=== PATIENT | male | born 1970 | race Caucasian/White ===

== ENCOUNTER 2017-09-02 08:30 | Emergency (ER) | payer BC ==
[2017-09-02] MEDS ORDERED: Sodium Chloride 0.9% 1000 ML 1,000 ML ONE (08:51)
[2017-09-02] MEDS ORDERED: Phenergan 25 MG INJ IV ONE (08:53)
[2017-09-02] MEDS ORDERED: TORAdol 30 mg Injection IV ONE (08:53)
[2017-09-02] MEDS ORDERED: Hydromorphone 1 mg/ml Ampule IV ONE (08:53)
[2017-09-02] MEDS ORDERED: Sodium Chloride 0.9% 1000 ML 1,000 ML IV STA (08:53)
--- NOTE | 2017-09-02 08:53 | ERPHSYRPT ---
- History of Present Illness Time Seen by Provider: 09/02/17 08:46 Historian: patient Exam Limitations: no limitations Physician History: The patient is a 47-year-old male with his complaining of a sudden onset of left sided flank pain radiating to his left abdomen. This pain came on suddenly while he was in the bathroom at work. He had a bowel movement at that time. However, he was not able to urinate. He states he just "dribbles". He denies fever. For the last few days he has been outdoors in the heat. He denies ever having a kidney stone. His past medical history is unremarkable. Allergies/Adverse Reactions: carisoprodol [From [employer]] Allergy (Severe, Verified 05/17/12 16:01) Home Medications: No Home Meds 05/17/12 [History] Hx Tetanus, Diphtheria Vaccination/Date Given: Yes (PT STATES UTD) Hx Influenza Vaccination/Date Given: No Hx Pneumococcal Vaccination/Date Given: No - Past Medical History Pertinent Past Medical History: No - Past Surgical History Past Surgical History: No - Social History Smoking Status: Never smoker Exposure to second hand smoke: No Drug Use: none Patient Lives Alone: No - Nursing Vital Signs Nursing Vital Signs: Initial Vital Signs Temperature 98 F 09/02/17 08:31 Pulse Rate 65 09/02/17 08:31 Respiratory Rate 18 09/02/17 08:31 Blood Pressure 162/95 09/02/17 08:31 O2 Sat by Pulse Oximetry 95 09/02/17 08:31 Pain Scale Pain Intensity [Posterior Back 9 ] Pain Intensity 2 - CT Exams Abdomen/Pelvis CT Interpretation: Tele-radiologist Report, No appendicitis, Other (4 mm stone in distal left ureter with mild hydronephrosis. appendicoliths seen without signs of appendicitis per Dr Rhodes.) Ordered Tests: Active Orders 24 hr Category Date Time Status IV Insertion STAT Care 09/02/17 08:53 Active ABDOMEN AND PELVIS W/0 CONTRAS [CT] Stat Exams 09/02/17 10:13 Completed CBC W DIFF Stat Lab 09/02/17 09:02 Completed CMP Stat Lab 09/02/17 09:02 Completed CULTURE,URINE Stat Lab 09/02/17 09:46 Received LIPASE Stat Lab 09/02/17 09:02 Completed Lactic Acid Stat Lab 09/02/17 09:00 Completed UA W/ MICROSCOPIC Stat Lab 09/02/17 09:46 Completed Medication Summary Discontinued Medications Generic Name Dose Route Start Last Admin Trade Name Genevieve PRN Reason Stop Dose Admin Hydromorphone HCl 1 mg 09/02/17 08:53 09/02/17 09:06 Hydromorphone 1 Mg/Ml Ampule IV 09/02/17 08:54 1 mg STAT ONE Administration Hydromorphone HCl Confirm 09/02/17 09:00 Dilaudid 2 Mg Injection Administered 09/02/17 09:01 Dose 2 mg .ROUTE .STK-MED ONE Sodium Chloride Confirm 09/02/17 08:51 Sodium Chloride 0.9% 1000 Ml Administered 09/02/17 08:52 Dose 1,000 mls @ ud .ROUTE .STK-MED ONE Sodium Chloride 1,000 mls @ 999 mls/hr 09/02/17 08:53 09/02/17 09:07 Sodium Chloride 0.9% 1000 Ml IV 09/02/17 09:53 999 mls/hr .Q1H1M STA Administration Ketorolac Tromethamine 30 mg 09/02/17 08:53 09/02/17 09:07 Toradol 30 Mg Injection IV 09/02/17 08:54 30 mg STAT ONE Administration Ketorolac Tromethamine Confirm 09/02/17 08:59 Toradol 30 Mg Injection Administered 09/02/17 09:00 Dose 30 mg .ROUTE .STK-MED ONE Promethazine HCl 25 mg 09/02/17 08:53 09/02/17 09:06 Phenergan 25 Mg Inj IV 09/02/17 08:54 25 mg STAT ONE Administration Promethazine HCl Confirm 09/02/17 08:59 Phenergan 25 Mg Inj Administered 09/02/17 09:00 Dose 25 mg .ROUTE .STK-MED ONE Tamsulosin HCl 0.4 mg 09/02/17 08:55 09/02/17 09:09 Flomax 0.4 Mg PO 09/02/17 08:56 0.4 mg HS STA Administration Tamsulosin HCl Confirm 09/02/17 08:59 Flomax 0.4 Mg Administered 09/02/17 09:00 Dose 0.4 mg .ROUTE .STK-MED ONE Lab/Rad Data: Laboratory Result Diagrams 09/02/17 09:02 09/02/17 09:02 Laboratory Results 09/02/17 09/02/17 09/02/17 Range/Units 09:46 09:02 09:02 WBC 6.0 (4.0-10.5) K/mm3 RBC 4.51 (4.1-5.6) M/mm3 Hgb 14.6 (12.5-18.0) gm/dl Hct 41.2 L (42-50) % MCV 91.4 (78-100) fl MCH 32.4 H (26-32) pg MCHC 35.4 (32-36) g/dl RDW 12.7 (11.5-14.0) % Plt Count 183 (150-450) K/mm3 MPV 10.8 H (6-9.5) fl Gran % 55.0 (36.0-66.0) % Eos # (Auto) 0.24 (0-0.5) Absolute Lymphs (auto) 2.08 (1.0-4.6) Absolute Monos (auto) 0.35 (0.0-1.3) Lymphocytes % 34.8 (24.0-44.0) % Monocytes % 5.9 (0.0-12.0) % Eosinophils % 4.0 (0.00-5.0) % Basophils % 0.3 (0.0-0.4) % Absolute Granulocytes 3.28 (1.4-6.9) Basophils # 0.02 (0-0.4) Sodium 143 (137-145) mmol/L Potassium 4.3 (3.5-5.1) mmol/L Chloride 109 H (98-107) mmol/L Carbon Dioxide 23 (22-30) mmol/L Anion Gap 14.9 (5-15) MEQ/L BUN 20 (9-20) mg/dL Creatinine 1.03 (0.66-1.25) mg/dL Estimated GFR > 60.0 ML/MIN Glucose 133 H (74-106) mg/dL Lactic Acid (0.4-2.0) Calcium 9.2 (8.4-10.2) mg/dL Total Bilirubin 0.70 (0.2-1.3) mg/dL AST 56 (17-59) U/L ALT 94 H (0-50) U/L Alkaline Phosphatase 76 (38-126) U/L Serum Total Protein 7.9 (6.3-8.2) g/dL Albumin 4.5 (3.5-5.0) g/dL Lipase 93 (23-300) U/L Ur Collection Type VOID Urine Color YELLOW (YELLOW) Urine Appearance HAZY (CLEAR) Urine pH 5.0 (5-6) Ur Specific [place] 1.025 (1.005-1.025) Urine Protein TRACE (Negative) Urine Ketones TRACE (NEGATIVE) Urine Blood 250 (0-5) Romeo/ul Urine Nitrite NEGATIVE (NEGATIVE) Urine Bilirubin NEGATIVE (NEGATIVE) Urine Urobilinogen NORMAL (0-1) mg/dL Ur Leukocyte Esterase NEGATIVE (NEGATIVE) Urine Microscopic RBC 50-100 (0-2) /HPF Urine Microscopic WBC 0-2 (0-5) /HPF Ur Epithelial Cells FEW (FEW) /HPF Urine Bacteria FEW (NEGATIVE) /HPF Urine Mucus MANY (NEGATIVE) /HPF Urine Culture Reflexed YES (NO) Urine Glucose 50 (NEGATIVE) mg/dL Specimen Received 09/02/17 0930 09/02/17 Range/Units 09:00 WBC (4.0-10.5) K/mm3 RBC (4.1-5.6) M/mm3 Hgb (12.5-18.0) gm/dl Hct (42-50) % MCV (78-100) fl MCH (26-32) pg MCHC (32-36) g/dl RDW (11.5-14.0) % Plt Count (150-450) K/mm3 MPV (6-9.5) fl Gran % (36.0-66.0) % Eos # (Auto) (0-0.5) Absolute Lymphs (auto) (1.0-4.6) Absolute Monos (auto) (0.0-1.3) Lymphocytes % (24.0-44.0) % Monocytes % (0.0-12.0) % Eosinophils % (0.00-5.0) % Basophils % (0.0-0.4) % Absolute Granulocytes (1.4-6.9) Basophils # (0-0.4) Sodium (137-145) mmol/L Potassium (3.5-5.1) mmol/L Chloride (98-107) mmol/L Carbon Dioxide (22-30) mmol/L Anion Gap (5-15) MEQ/L BUN (9-20) mg/dL Creatinine (0.66-1.25) mg/dL Estimated GFR ML/MIN Glucose (74-106) mg/dL Lactic Acid 1.4 (0.4-2.0) Calcium (8.4-10.2) mg/dL Total Bilirubin (0.2-1.3) mg/dL AST (17-59) U/L ALT (0-50) U/L Alkaline Phosphatase (38-126) U/L Serum Total Protein (6.3-8.2) g/dL Albumin (3.5-5.0) g/dL Lipase (23-300) U/L Ur Collection Type Urine Color (YELLOW) Urine Appearance (CLEAR) Urine pH (5-6) Ur Specific [place] (1.005-1.025) Urine Protein (Negative) Urine Ketones (NEGATIVE) Urine Blood (0-5) Romeo/ul Urine Nitrite (NEGATIVE) Urine Bilirubin (NEGATIVE) Urine Urobilinogen (0-1) mg/dL Ur Leukocyte Esterase (NEGATIVE) Urine Microscopic RBC (0-2) /HPF Urine Microscopic WBC (0-5) /HPF Ur Epithelial Cells (FEW) /HPF Urine Bacteria (NEGATIVE) /HPF Urine Mucus (NEGATIVE) /HPF Urine Culture Reflexed (NO) Urine Glucose (NEGATIVE) mg/dL Specimen Received - Progress Progress: improved Progress Note: 09/02/17 11:31 Pt feeling better after dilaudid, phenergan, toradol 30 mg, and fluids by IV, and flomax 0.4 mg orally. 09/02/17 11:34 Counseled pt/family regarding: lab results, diagnosis, need for follow-up, rad results - Departure Time of Disposition: 11:32 Departure Disposition: Home Clinical Impression: Kidney stone on left side Condition: Stable Critical Care Time: No Referrals: LULY GROSS [Primary Care Provider] - Additional Instructions: You have a 4 mm stone in your distal left ureter. It is almost into the bladder. At home please strain all urine to catch the stone. Have the stone evaluated for composition by your primary medical doctor. You were given Toradol 30 mg, Dilaudid 1 mg, Phenergan 25 mg, and fluids by IV and you were given Flomax 0.4 mg orally in the ER. Take [place] one tablet every 4-6 hours as needed. Follow-up with your primary medical doctor in one to 2 days. Prescriptions: Hydrocodone/APAP 5/325 [[place] 5/325 mg] 1 each PO Q4-6HPRN PRN #10 tablet MDD 6 PRN Reason: Pain
[2017-09-02] MEDS ORDERED: Flomax 0.4 MG PO STA (08:55)
[2017-09-02] MEDS ORDERED: TORAdol 30 mg Injection ONE (08:59)
[2017-09-02] MEDS ORDERED: Flomax 0.4 MG ONE (08:59)
[2017-09-02] MEDS ORDERED: Phenergan 25 MG INJ ONE (08:59)
[2017-09-02] MEDS ORDERED: DILAUDID 2 MG INJECTION ONE (09:00)
[2017-09-02 09:10] LABS: BASOPHIL % 0.3 % (0.0-0.4); Basophil (Absolute #) 0.02 (0-0.4); Eosinophil (Absolute #) 0.24 (0-0.5); Granulocyte Absolute (ANC) 3.28 (1.4-6.9); Hematocrit 41.2 % (42-50); Hemoglobin 14.6 gm/dl (12.5-18.0); Lymphocyte (Absolute #) 2.08 (1.0-4.6); Lymphocytes % 34.8 % (24.0-44.0); Mean Cell Volume 91.4 fl (78-100); Mean Corpuscular Hemoglobin 32.4 pg (26-32); Mean Corpuscular Hgb Concent. 35.4 g/dl (32-36); Mean Platelet Volume 10.8 fl (6-9.5); Monocyte (Absolute #) 0.35 (0.0-1.3); Monocytes % 5.9 % (0.0-12.0); Platelet Count 183 K/mm3 (150-450); Red Blood Count 4.51 M/mm3 (4.1-5.6); Red Cell Distribution Width 12.7 % (11.5-14.0)
[2017-09-02 09:31] LABS: ALBUMIN 4.5 g/dL (3.5-5.0); ALKALINE PHOSPHATASE 76 U/L (38-126); ANION GAP 14.9 MEQ/L (5-15); BLOOD UREA NITROGEN 20 mg/dL (9-20); CHLORIDE 109 mmol/L (98-107); Calcium 9.2 mg/dL (8.4-10.2); Carbon Dioxide 23 mmol/L (22-30); Creatinine 1 1.03 mg/dL (0.66-1.25); Glucose 133 mg/dL (74-106); LIPASE 93 U/L (23-300); Potassium 4.3 mmol/L (3.5-5.1); SGOT/AST 56 U/L (17-59); SGPT/ALT 94 U/L (0-50); SODIUM 143 mmol/L (137-145); Total Protein 7.9 g/dL (6.3-8.2)
[2017-09-02 10:01] LABS: Appearance HAZY (CLEAR); Bacteria FEW /HPF (NEGATIVE); Bilirubin NEGATIVE (NEGATIVE); Blood 250 Ery/ul (0-5); Epithelial Cells FEW /HPF (FEW); Glucose 50 mg/dL (NEGATIVE); Ketones TRACE (NEGATIVE); Leukocyte Esterase NEGATIVE (NEGATIVE); Mucus MANY /HPF (NEGATIVE); Nitrite NEGATIVE (NEGATIVE); Protein,Urine Dip TRACE (Negative); RBC 50-100 /HPF (0-2); Specific Gravity 1.025 (1.005-1.025); Urobilinogen NORMAL mg/dL (0-1); WBC 0-2 /HPF (0-5)
--- NOTE | 2017-09-02 11:10 | XRAY ---
Indication: Left back pain. Hematuria/dysuria. Multiple contiguous axial images obtained through the abdomen and pelvis without contrast using renal stone protocol. Comparison: None Lung bases demonstrate moderate bibasilar dependent atelectasis and a few tiny bibasilar calcified granulomas. Heart is not enlarged. Tiny distal paraesophageal calcified node. 4 mm distal left ureter calculus just proximal to the UVJ. More proximal left ureter is slightly prominent up to 6 mm long with mild hydronephrosis and mild perinephric stranding consistent with partial obstructive uropathy. No free fluid/air. Noncontrasted stomach and bowel loops appear nonobstructed. Tiny appendicoliths without features for appendicitis. Diffuse fatty liver. Remaining liver, gallbladder, pancreas, spleen, adrenal glands, kidneys, ureters, bladder, and aorta appear unremarkable for noncontrast exam. Osseous structures intact. Small fatty umbilical and fatty right inguinal hernias. Impression: 1. 4 mm distal left ureteral calculus producing partial obstruction as detailed. 2. Fatty liver, appendicoliths, and evidence for old granulomatous disease. 3. Small fatty umbilical and fatty right inguinal hernias. CT DI 23.68
[2017-09-02 11:23] VITALS: O2SAT 96
[2017-09-02 12:15] VITALS: BP 114/65; PULSE 84
== END 2017-09-02 12:15 | disposition home or self-care (01) ==
LOC: ED 08:30
DX: N20.0 Calculus of kidney (principal)
CPT/HCPCS: 36000; 36415; 74176; 80053; 81000; 83605; 83690; 85025; 87086; 96360; 96374; 96375; 99284; J1170; J1885; J2550; A9270-GY

== ENCOUNTER 2024-01-06 19:20 | Observation (INO) | payer BC ==
--- NOTE | 2024-01-06 19:34 | ERPHSYRPT ---
- History of Present Illness Time Seen by Provider: 01/06/24 19:34 Source: patient, family Exam Limitations: no limitations Physician History: This is a 53-year-old white male patient of Dr. Camarillo who was brought into the emergency department secondary to fever and shortness of breath. Symptoms began on 01/05/2024. Patient was in [facility] emergency department where, per patient's significant other, reported to me that he was diagnosed with shingles based on visual inspection and was given valacyclovir. Today, he has had fevers and a significant headache. He does have a history of restless leg syndrome and is on Requip for that condition. He has noticed that he has had bilateral lower extremity intermittent numbness from his lower back to his feet. He denies chest pain. He denies shortness of breath. His main concerns today is low- grade fever, shortness of breath, headache and intermittent numbness and lower back pain and cramping lower legs. Timing/Duration: yesterday Activities at Onset: none Severity of Dyspnea-Max: mild Severity of Dyspnea-Current: mild Possible Cause: no prior episodes Associated Symptoms: intermittent, muscle spasms feet (Spasms of feet and lower extremity.), No chest pain/discomfort, No calf pain, No leg swelling Allergies/Adverse Reactions: carisoprodol [From Soma] Allergy (Severe, Verified 01/06/24 20:04) Home Medications: Ropinirole HCl 0.5 mg [Requip 0.5 MG] 0.5 mg PO HS 01/06/24 [History] Valacyclovir HCl [valACYclovir] 1,000 mg PO TID 01/06/24 [History] Hx Tetanus, Diphtheria Vaccination/Date Given: Yes (PT STATES UTD) Hx Influenza Vaccination/Date Given: No Hx Pneumococcal Vaccination/Date Given: No Travel Risk - International Travel Have you traveled outside of the country in past 3 weeks: No - Emerging Infectious Disease Symptoms: Fever, Headaches/Body Aches/, Shortness of Breath, Other (Please Comment) (Recently diagnosed with shingles and is on valacyclovir) - Review of Systems Constitutional: Fever Eyes: No Symptoms Ears, Nose, & Throat: No Symptoms Respiratory: Dyspnea Cardiac: No Symptoms Abdominal/Gastrointestinal: No Symptoms Genitourinary Symptoms: No Symptoms Musculoskeletal: No Symptoms Skin: Rash (Shingles rash), Other Neurological: No Symptoms Psychological: No Symptoms Endocrine: No Symptoms Hematologic/Lymphatic: No Symptoms Immunological/Allergic: No Symptoms All Other Systems: Reviewed and Negative - Past Medical History Pertinent Past Medical History: No Neurological History: Other (Left leg syndrome) ENT History: No Pertinent History Cardiac History: No Pertinent History Respiratory History: No Pertinent History Endocrine Medical History: No Pertinent History Musculoskeletal History: Osteoarthritis GI Medical History: No Pertinent History History: No Pertinent History Psycho-Social History: No Pertinent History Male Reproductive Disorders: No Pertinent History - Past Surgical History Past Surgical History: No - Social History Smoking Status: Never smoker Exposure to second hand smoke: No Drug Use: none Patient Lives Alone: No - Nursing Vital Signs Nursing Vital Signs: Initial Vital Signs Temperature 100.6 F 01/06/24 19:22 Pulse Rate 88 01/06/24 19:22 Respiratory Rate 24 01/06/24 19:22 Blood Pressure 142/89 01/06/24 19:22 O2 Sat by Pulse Oximetry 96 01/06/24 19:22 Pain Scale Pain Intensity 10 - Physical Exam General Appearance: mild distress, alert, anxiety Eye Exam: PERRL/EOMI, eyes nml inspection Ears, Nose, Throat Exam: hearing grossly normal, normal ENT inspection, normal pharynx Neck Exam: normal inspection, non-tender, supple, full range of motion Respiratory Exam: normal breath sounds, lungs clear, airway intact, diminished breath sounds, No chest tenderness, No respiratory distress, No accessory muscle use, No wheezing, No stridor Cardiovascular/Chest Exam: normal heart sounds, regular rate/rhythm Abdominal/Gastrointestinal Exam: soft, normal bowel sounds, No tenderness, No guarding Rectal Exam: not done Extremity Exam: non-tender, normal range of motion, normal inspection, no calf tenderness, no pedal edema, pelvis stable Neurologic Exam: alert, oriented x 3, cooperative, breast surgeon II-XII nml as tested, sensation nml Skin Exam: warm, rash (Shingles rash right anterior lateral torso) Lymphatic Exam: No adenopathy SpO2 Interpretation: normal O2 Delivery: Room Air - Course Nursing assessment & vital signs reviewed: Yes EKG Interpreted by Me: RATE (83), Sinus Rhythm, NORMAL AXIS, NORMAL INTERVALS, NORMAL QRS, NORMAL ST-T, Other (No acute ischemia) Ordered Tests: Active Orders 24 hr Category Date Time Status Varnish Remover STAT Care 01/06/24 19:56 Active EKG-ER Only STAT Care 01/06/24 19:55 Active IV Insertion STAT Care 01/06/24 19:55 Active Pulse Oximetry (ED) STAT Care 01/06/24 19:55 Active CHEST 1 VIEW (PORTABLE) Stat Exams 01/06/24 21:18 Taken HEAD WITHOUT CONTRAST [CT] Stat Exams 01/06/24 21:20 Taken BLOOD CULTURE Stat Lab 01/06/24 20:10 Received CBC W DIFF Stat Lab 01/06/24 19:40 Completed CMP Stat Lab 01/06/24 19:40 Completed D-DIMER QUANTITATIVE Stat Lab 01/06/24 19:40 Completed Lactic Acid Stat Lab 01/06/24 19:55 Completed MAGNESIUM Stat Lab 01/06/24 19:40 Completed MONO SCREEN Stat Lab 01/06/24 20:10 Completed NT PRO BNPII Stat Lab 01/06/24 19:40 Completed TROPONIN Q4H Lab 01/06/24 19:40 Completed TROPONIN Q4H Lab 01/07/24 00:05 Received TROPONIN Q4H Lab 01/07/24 04:00 Ordered UA W/RFX UR CULTURE Stat Lab 01/06/24 23:33 Completed Medication Summary Generic Name Dose Route Start Last Admin Trade Name Freq PRN Reason Stop Dose Admin Amitriptyline HCl 25 mg 01/07/24 23:45 01/07/24 00:04 Amitriptyline Hcl 25 Mg Tablet PO 01/07/24 23:46 25 mg STAT ONE Administration Sodium Chloride 1,000 mls @ 100 mls/hr 01/06/24 20:00 01/06/24 20:00 Sodium Chloride 0.9% 1000 Ml IV 02/05/24 19:59 100 mls/hr .Q10H DUSTIN Administration Discontinued Medications Generic Name Dose Route Start Last Admin Trade Name Freq PRN Reason Stop Dose Admin Amitriptyline HCl Confirm 01/06/24 23:55 Amitriptyline Hcl 25 Mg Tablet Administered 01/06/24 23:56 Dose 25 mg .ROUTE .STK-MED ONE Morphine Sulfate 4 mg 01/06/24 20:24 01/06/24 20:28 Morphine Sulfate 4 Mg/Ml Injection IV 01/06/24 20:25 4 mg STAT ONE Administration Morphine Sulfate Confirm 01/06/24 20:27 Morphine Sulfate 4 Mg/Ml Injection Administered 01/06/24 20:28 Dose 4 mg .ROUTE .STK-MED ONE Morphine Sulfate 4 mg 01/06/24 22:57 01/06/24 23:21 Morphine Sulfate 4 Mg/Ml Injection IV 01/06/24 22:58 4 mg STAT ONE Administration Morphine Sulfate Confirm 01/06/24 23:20 Morphine Sulfate 4 Mg/Ml Injection Administered 01/06/24 23:21 Dose 4 mg .ROUTE .STK-MED ONE Ondansetron HCl 4 mg 01/06/24 20:24 01/06/24 20:28 Ondansetron Hcl 4 Mg/2 Ml Vial IV 01/06/24 20:25 4 mg STAT ONE Administration Ondansetron HCl Confirm 01/06/24 20:27 Ondansetron Hcl 4 Mg/2 Ml Vial Administered 01/06/24 20:28 Dose 4 mg .ROUTE .STK-MED ONE Lab/Rad Data: Laboratory Result Diagrams 01/06/24 19:40 01/06/24 19:40 Laboratory Results 01/06/24 01/06/24 01/06/24 Range/Units 23:33 20:12 20:10 WBC (4.23-9.07) x10^3/uL RBC (4.63-6.08) x10^6/uL Hgb (13.7-17.5) g/dL Hct (40.1-51.0) % MCV (79.0-92.2) fL MCH (25.7-32.2) pg MCHC (32.3-36.5) g/dL RDW (11.6-14.4) % Plt Count (163-337) x10^3/uL MPV (9.4-12.4) fL Gran % (34.0-67.9) % Immature Gran % (Auto) (0.001-0.429) % Nucleat RBC Rel Count (0.00-0.2) % Eos # (Auto) (0.04-0.54) x10^3/uL Immature Gran # (Auto) (0.001-0.031) x10^3u/L Absolute Lymphs (auto) (1.32-3.57) x10^3/uL Absolute Monos (auto) (0.30-0.82) x10^3/uL Absolute Nucleated RBC (0.00-0.012) x10^3u/L Lymphocytes % (21.8-53.1) % Monocytes % (5.3-12.2) % Eosinophils % (0.8-7.0) % Basophils % (0.2-1.2) % Absolute Granulocytes (1.78-5.38) x10^3/uL Basophils # (0.01-0.08) x10^3/uL D-Dimer (0.0-0.50) mg/L Sodium (135-145) mmol/L Potassium (3.5-5.1) mmol/L Chloride (98-107) mmol/L Carbon Dioxide (22-30) mmol/L Anion Gap (5-15) MEQ/L BUN (9-20) mg/dL Creatinine (0.66-1.25) mg/dL Estimated GFR ML/MIN Glucose (74-106) mg/dL Lactic Acid (0.4-2.0) Calcium (8.4-10.2) mg/dL Magnesium (1.6-2.3) mg/dL Total Bilirubin (0.2-1.3) mg/dL AST (17-59) U/L ALT (0-50) U/L Alkaline Phosphatase (38-126) U/L Troponin I (0.000-0.033) ng/mL NT-Pro-B Natriuret Pep (<300) pg/mL Serum Total Protein (6.3-8.2) g/dL Albumin (3.5-5.0) g/dL Urine Color Yellow (Yellow) Urine Appearance Clear (Clear) Urine pH 6.5 (4.6-8.0) Ur Specific [place] >=1.030 A (1.005-1.030) Urine Protein Negative (Negative) Urine Glucose (UA) Negative (Negative) mg/dL Urine Ketones 15 A (Negative) Urine Blood Negative (Negative) Urine Nitrite Negative (Negative) Urine Bilirubin Negative (Negative) Urine Urobilinogen 0.2 (0.2) mg/dL Ur Leukocyte Esterase Negative (Negative) U Hyaline Cast (Auto) NONE SEEN (0-2) /LPF Urine Microscopic RBC 0-2 (0-5) /HPF Urine Microscopic WBC 0-2 (0-5) /HPF Ur Epithelial Cells None Seen (None Seen) /HPF Urine Bacteria None Seen (None Seen) /HPF Urine Culture Reflexed NO (NO) Monoscreen NEGATIVE (NEGATIVE) Influenza Type A Ag NEGATIVE (NEGATIVE) Influenza Type B Ag NEGATIVE (NEGATIVE) RSV (PCR) NEGATIVE (NEGATIVE) SARS-CoV-2 (PCR) NEGATIVE (NEGATIVE) 01/06/24 01/06/24 01/06/24 Range/Units 19:55 19:40 19:40 WBC (4.23-9.07) x10^3/uL RBC (4.63-6.08) x10^6/uL Hgb (13.7-17.5) g/dL Hct (40.1-51.0) % MCV (79.0-92.2) fL MCH (25.7-32.2) pg MCHC (32.3-36.5) g/dL RDW (11.6-14.4) % Plt Count (163-337) x10^3/uL MPV (9.4-12.4) fL Gran % (34.0-67.9) % Immature Gran % (Auto) (0.001-0.429) % Nucleat RBC Rel Count (0.00-0.2) % Eos # (Auto) (0.04-0.54) x10^3/uL Immature Gran # (Auto) (0.001-0.031) x10^3u/L Absolute Lymphs (auto) (1.32-3.57) x10^3/uL Absolute Monos (auto) (0.30-0.82) x10^3/uL Absolute Nucleated RBC (0.00-0.012) x10^3u/L Lymphocytes % (21.8-53.1) % Monocytes % (5.3-12.2) % Eosinophils % (0.8-7.0) % Basophils % (0.2-1.2) % Absolute Granulocytes (1.78-5.38) x10^3/uL Basophils # (0.01-0.08) x10^3/uL D-Dimer 0.41 (0.0-0.50) mg/L Sodium (135-145) mmol/L Potassium (3.5-5.1) mmol/L Chloride (98-107) mmol/L Carbon Dioxide (22-30) mmol/L Anion Gap (5-15) MEQ/L BUN (9-20) mg/dL Creatinine (0.66-1.25) mg/dL Estimated GFR ML/MIN Glucose (74-106) mg/dL Lactic Acid 1.1 (0.4-2.0) Calcium (8.4-10.2) mg/dL Magnesium (1.6-2.3) mg/dL Total Bilirubin (0.2-1.3) mg/dL AST (17-59) U/L ALT (0-50) U/L Alkaline Phosphatase (38-126) U/L Troponin I (0.000-0.033) ng/mL NT-Pro-B Natriuret Pep 60.5 (<300) pg/mL Serum Total Protein (6.3-8.2) g/dL Albumin (3.5-5.0) g/dL Urine Color (Yellow) Urine Appearance (Clear) Urine pH (4.6-8.0) Ur Specific [place] (1.005-1.030) Urine Protein (Negative) Urine Glucose (UA) (Negative) mg/dL Urine Ketones (Negative) Urine Blood (Negative) Urine Nitrite (Negative) Urine Bilirubin (Negative) Urine Urobilinogen (0.2) mg/dL Ur Leukocyte Esterase (Negative) U Hyaline Cast (Auto) (0-2) /LPF Urine Microscopic RBC (0-5) /HPF Urine Microscopic WBC (0-5) /HPF Ur Epithelial Cells (None Seen) /HPF Urine Bacteria (None Seen) /HPF Urine Culture Reflexed (NO) Monoscreen (NEGATIVE) Influenza Type A Ag (NEGATIVE) Influenza Type B Ag (NEGATIVE) RSV (PCR) (NEGATIVE) SARS-CoV-2 (PCR) (NEGATIVE) 01/06/24 01/06/24 01/06/24 Range/Units 19:40 19:40 19:40 WBC 9.1 H (4.23-9.07) x10^3/uL RBC 4.81 (4.63-6.08) x10^6/uL Hgb 15.8 (13.7-17.5) g/dL Hct 44.1 (40.1-51.0) % MCV 91.7 (79.0-92.2) fL MCH 32.8 H (25.7-32.2) pg MCHC 35.8 (32.3-36.5) g/dL RDW 11.9 (11.6-14.4) % Plt Count 201 (163-337) x10^3/uL MPV 11.0 (9.4-12.4) fL Gran % 74.9 H (34.0-67.9) % Immature Gran % (Auto) 0.4 (0.001-0.429) % Nucleat RBC Rel Count 0.0 (0.00-0.2) % Eos # (Auto) 0.22 (0.04-0.54) x10^3/uL Immature Gran # (Auto) 0.04 H (0.001-0.031) x10^3u/L Absolute Lymphs (auto) 1.28 L (1.32-3.57) x10^3/uL Absolute Monos (auto) 0.69 (0.30-0.82) x10^3/uL Absolute Nucleated RBC 0.00 (0.00-0.012) x10^3u/L Lymphocytes % 14.1 L (21.8-53.1) % Monocytes % 7.6 (5.3-12.2) % Eosinophils % 2.4 (0.8-7.0) % Basophils % 0.6 (0.2-1.2) % Absolute Granulocytes 6.79 H (1.78-5.38) x10^3/uL Basophils # 0.05 (0.01-0.08) x10^3/uL D-Dimer (0.0-0.50) mg/L Sodium 136 (135-145) mmol/L Potassium 3.9 (3.5-5.1) mmol/L Chloride 102 (98-107) mmol/L Carbon Dioxide 21 L (22-30) mmol/L Anion Gap 17.6 H (5-15) MEQ/L BUN 21 H (9-20) mg/dL Creatinine 1.06 (0.66-1.25) mg/dL Estimated GFR 83.4 ML/MIN Glucose 148 H (74-106) mg/dL Lactic Acid (0.4-2.0) Calcium 9.7 (8.4-10.2) mg/dL Magnesium 1.8 (1.6-2.3) mg/dL Total Bilirubin 0.70 (0.2-1.3) mg/dL AST 64 H (17-59) U/L ALT 147 H (0-50) U/L Alkaline Phosphatase 73 (38-126) U/L Troponin I < 0.012 (0.000-0.033) ng/mL NT-Pro-B Natriuret Pep (<300) pg/mL Serum Total Protein 7.4 (6.3-8.2) g/dL Albumin 4.6 (3.5-5.0) g/dL Urine Color (Yellow) Urine Appearance (Clear) Urine pH (4.6-8.0) Ur Specific [place] (1.005-1.030) Urine Protein (Negative) Urine Glucose (UA) (Negative) mg/dL Urine Ketones (Negative) Urine Blood (Negative) Urine Nitrite (Negative) Urine Bilirubin (Negative) Urine Urobilinogen (0.2) mg/dL Ur Leukocyte Esterase (Negative) U Hyaline Cast (Auto) (0-2) /LPF Urine Microscopic RBC (0-5) /HPF Urine Microscopic WBC (0-5) /HPF Ur Epithelial Cells (None Seen) /HPF Urine Bacteria (None Seen) /HPF Urine Culture Reflexed (NO) Monoscreen (NEGATIVE) Influenza Type A Ag (NEGATIVE) Influenza Type B Ag (NEGATIVE) RSV (PCR) (NEGATIVE) SARS-CoV-2 (PCR) (NEGATIVE) - Progress Progress: improved, re-examined Air Movement: good Progress Note: 01/06/24 21:57 My medical decision making the assignment of moderate complexity to this patient's medical issue today is based on review of the patient's past medical history, review of the patient's medication list, review patient drug allergy list, history present illness and physical findings on examination. The workup in this patient includes placement of intravenous line, infusion of normal salin e solution, blood cultures, CBC, CMP, urinalysis, chest x-ray, D-dimer, twelve- lead EKG, troponin level as well as monotest and viral studies. Differential diagnoses include but is not limited to viral illness, urinary tract infection, electrolyte abnormalities, pneumonia, acute intracranial abnorm ality 01/06/24 23:46 I interpreted the patient's laboratory data results. The results that have ret urned thus far show no acute, emergent medical issue. The urinalysis is pending. I interpreted the preliminary chest x-ray report on this patient. I do not see an acute, emergent medical issue. The CT scan of the head without contrast was interpreted by the radiologist and I reviewed the impression. The impression states normal CT scan of the head without contrast. 01/07/24 00:25 The patient's urinalysis showed mild dehydration but no other acute, emergent findings. I did speak with Dr. Curiel, our telehospitalist. I did review the patient history, physical findings, chief complaint and workup results. We will place him in observation and we will provide the patient with intravenous fluids, antiemetics, antipyretics and repeat labs in the morning. The telehospitalist accepts the patient to be placed in observation Blood Culture(s) Obtained: Yes Counseled pt/family regarding: lab results, diagnosis, rad results Medical Desision Making - Independent Historian Additional History obtained from: Spouse - Diagnostic Testing Diagnostic test were ordered, analyzed, and reviewed by me: Yes Radiological Interpretation: Interpreted by me, Reviewed by me, Teleradiologist Report - Risk of complications The pt has a high risk of morbidity or mortality based on: Decision regarding hospitilization or escalation of hosp level of care - Departure Departure Disposition: Observation Clinical Impression: Herpes zoster infection, Fever Condition: Stable Critical Care Time: No Referrals: MAGGIE CAMARILLO MD [Primary Care Provider] - Follow up/PCP as directed
[2024-01-06] MEDS ORDERED: Sodium Chloride 0.9% 1000 ML 1,000 ML ONE (19:59)
[2024-01-06] MEDS: Sodium Chloride 0.9% 1000 ML 1,000 ML IV SCH (20:00)
[2024-01-06 20:20] LABS: Absolute Neutrophil Ct (ANC) 6.79 x10^3/uL (1.78-5.38); BASOPHIL % 0.6 % (0.2-1.2); Basophil (Absolute #) 0.05 x10^3/uL (0.01-0.08); Eosinophil % 2.4 % (0.8-7.0); Eosinophil (Absolute #) 0.22 x10^3/uL (0.04-0.54); Hematocrit 44.1 % (40.1-51.0); Hemoglobin 15.8 g/dL (13.7-17.5); IMMATURE GRAN # 0.04 x10^3u/L (0.001-0.031); IMMATURE GRAN % 0.4 % (0.001-0.429); Lymphocyte (Absolute #) 1.28 x10^3/uL (1.32-3.57); Lymphocytes % 14.1 % (21.8-53.1); Mean Cell Volume 91.7 fL (79.0-92.2); Mean Corpuscular Hemoglobin 32.8 pg (25.7-32.2); Mean Corpuscular Hgb Concent. 35.8 g/dL (32.3-36.5); Monocyte (Absolute #) 0.69 x10^3/uL (0.30-0.82); Monocytes % 7.6 % (5.3-12.2); Neutrophil % 74.9 % (34.0-67.9); Platelet Count 201 x10^3/uL (163-337); Red Blood Count 4.81 x10^6/uL (4.63-6.08); Red Cell Distribution Width 11.9 % (11.6-14.4); White Blood Count 9.1 x10^3/uL (4.23-9.07)
[2024-01-06] MEDS ORDERED: Zofran 4 MG/2 ML VIAL ONE (20:27)
[2024-01-06] MEDS ORDERED: MORPHINE SULFATE 4 MG INJ ONE ×2 (20:27→23:20)
[2024-01-06] MEDS: Zofran 4 MG/2 ML VIAL IV ONE (20:28)
[2024-01-06] MEDS: MORPHINE SULFATE 4 MG INJ IV ONE ×2 (20:28→23:21)
[2024-01-06 20:31] LABS: ALBUMIN 4.6 g/dL (3.5-5.0); ANION GAP 17.6 MEQ/L (5-15); BILIRUBIN,TOTAL 0.7 mg/dL (0.2-1.3); Calcium 9.7 mg/dL (8.4-10.2); Creatinine 1 1.06 mg/dL (0.66-1.25); EST GLOMERULAR FILTRATION RATE 83.4 ML/MIN; MAGNESIUM 1.8 mg/dL (1.6-2.3); Potassium 3.9 mmol/L (3.5-5.1); Total Protein 7.4 g/dL (6.3-8.2)
[2024-01-06 20:53] LABS: INFLUENZA A NEGATIVE (NEGATIVE); INFLUENZA B NEGATIVE (NEGATIVE); RESPIRATORY SYNCTIAL VIRUS NEGATIVE (NEGATIVE); SARS-CoV-2 Xpert Express NEGATIVE (NEGATIVE)
[2024-01-06 23:43] LABS: Appearance Clear (Clear); Bacteria None Seen /HPF (None Seen); Bilirubin Negative (Negative); Blood Negative (Negative); Epithelial Cells None Seen /HPF (None Seen); Glucose, Urine Negative (Negative); Hyaline Casts NONE SEEN /LPF (0-2); Ketones 15 (Negative); Leukocyte Esterase Negative (Negative); Nitrite Negative (Negative); Ph 6.5 (4.6-8.0); Protein,Urine Dip Negative (Negative); RBC 0-2 /HPF (0-5); Specific Gravity >=1.030 (1.005-1.030); Urobilinogen 0.2 mg/dL (0.2); WBC 0-2 /HPF (0-5)
[2024-01-06] MEDS ORDERED: AMITRIPTYLINE 25 MG TABLET ONE (23:55)
[2024-01-07] MEDS: AMITRIPTYLINE 25 MG TABLET PO ONE (00:04)
[2024-01-07] MEDS ORDERED: ROCEPHIN 1 GM / 100 ML NaCl 1 GM/100 ML IVPB IV ONE (00:33)
[2024-01-07] MEDS: ROCEPHIN 1 GM / 100 ML NaCl 1 GM/100 ML IVPB IV ONE (00:37)
[2024-01-07] MEDS ORDERED: Docusate Sodium 100 MG PO PRN (01:19)
[2024-01-07] MEDS ORDERED: Zofran 4 MG/2 ML VIAL IV PRN ×2 (01:19→01:24)
[2024-01-07] MEDS ORDERED: TYLENOL 325 MG PO PRN (01:19)
--- NOTE | 2024-01-07 01:49 | PCM.HP ---
History of Present Illness - Chief Complaint Chief Complaint: Herpes zoster infection Date: 01/07/24 History of Present Illness: is a 53 year old male who was recently diagnosed with chest wall shingles (at outside ED, with initiation of Valtrex, medrol) who now presents with [id number] back pain, bilateral leg numbness, fever, and headache. On the day of presentation, the patient reported headache and mild light sensitivity but denied neck pain, neck stiffness, saddle anesthesia, bowel/bladder incontinence, or urinary retention. He has had mild constipation but is passing flatus. His last BM was 2 days ago and was normal. The patient's chest wall er uption is still painful. He also reported dyspnea but did not report precordial visceral chest pain. He does have a history of restless leg syndrome and is on Requip for that condition. He has noticed that he has had bilateral lower extremity intermittent numbness from his lower back to his feet. He denies chest pain. He denies shortness of breath. He reported cramping in his lower legs. In the ED, the workup was unremarkable but the patient was too uncomfortable for discharge. - Review of Systems Constitutional: Fever Eyes: No Symptoms Ears, Nose, & Throat: No Symptoms Respiratory: Short Of Breath Cardiac: No Symptoms Abdominal/Gastrointestinal: No Symptoms Genitourinary Symptoms: No Symptoms Musculoskeletal: Back Pain Skin: Rash, Skin Lesions Neurological: Headache Medications & Allergies Home Medications: Home Medication List Ropinirole HCl 0.5 mg [Requip 0.5 MG] 0.5 mg PO HS 01/06/24 [History Confirmed 01/06/24] Valacyclovir HCl [valACYclovir] 1,000 mg PO TID 01/06/24 [History Confirmed 01/06/24] Allergies/Adverse Reactions: Allergies Allergy/AdvReac Type Severity Reaction Status Date / Time carisoprodol [From Soma] Allergy Severe Verified 01/06/24 20:04 - Past Medical History Past Medical History: No Neurological History: Other (Left leg syndrome) ENT History: No Pertinent History Cardiac History: No Pertinent History Respiratory History: No Pertinent History Endocrine Medical History: No Pertinent History Musculoskelatal History: Osteoarthritis GI Medical History: No Pertinent History History: No Pertinent History Pyscho-Social History: No Pertinent History Male Reproductive Disorders: No Pertinent History Comment: recent shingles diagnosis. rls. seasonal allergies - Past Surgical History Past Surgical History: No Other Surgical History: umbilical hernia repair,. bilat knee surgery Significant Family History: no pertinent family hx - Social History Smoking Status: Never smoker Exposure to second hand smoke: No Alcohol: Daily Drug Use: none - Social Determinants of Health Will the patient participate in the screening: Declined to provide - Physical Exam Vital Signs: Vital Signs - 24 hr Temp Pulse Resp BP BP Pulse Ox 01/07/24 01:00 70 145/90 95 01/07/24 00:30 70 24 148/77 97 01/07/24 00:00 67 27 H 176/96 99 01/06/24 23:30 67 29 H 152/69 99 01/06/24 23:00 66 17 152/88 92 L 01/06/24 22:30 74 31 H 133/65 96 01/06/24 22:00 69 34 H 147/88 97 01/06/24 21:55 72 29 H 146/87 95 01/06/24 21:00 80 28 H 144/100 94 L 01/06/24 20:30 72 31 H 139/65 94 L 01/06/24 20:02 95 01/06/24 20:00 70 22 150/84 94 L 01/06/24 19:30 77 32 H 148/80 96 01/06/24 19:22 100.6 F 81 34 H 142/89 142/89 95 General Appearance: mild distress, alert Neurologic Exam: alert, oriented x 3, cooperative, peoplesoft hr developer II-XII nml as tested, normal mood/affect, nml cerebellar function Eye Exam: PERRL/EOMI, eyes nml inspection Ears, Nose, Throat Exam: normal ENT inspection Neck Exam: normal inspection, non-tender, supple, full range of motion Respiratory Exam: normal breath sounds, lungs clear Cardiovascular Exam: regular rate/rhythm, normal peripheral pulses Gastrointestinal/Abdomen Exam: soft, normal bowel sounds Back Exam: normal inspection, normal range of motion, point tenderness (mid back (lower thoracic/upper lumbar) without warmth or induration) Extremity Exam: normal inspection, normal range of motion Skin Exam: rash (Chest wall rash noted in dermatomal distribution. Painful/tender to touch.) Results - Labs Lab/Micro Results: Lab Results-Last 24 Hours 01/06/24 01/06/24 01/06/24 Range/Units 19:40 19:40 19:40 WBC 9.1 H (4.23-9.07) x10^3/uL RBC 4.81 (4.63-6.08) x10^6/uL Hgb 15.8 (13.7-17.5) g/dL Hct 44.1 (40.1-51.0) % MCV 91.7 (79.0-92.2) fL MCH 32.8 H (25.7-32.2) pg MCHC 35.8 (32.3-36.5) g/dL RDW 11.9 (11.6-14.4) % Plt Count 201 (163-337) x10^3/uL MPV 11.0 (9.4-12.4) fL Gran % 74.9 H (34.0-67.9) % Immature Gran % (Auto) 0.4 (0.001-0.429) % Nucleat RBC Rel Count 0.0 (0.00-0.2) % Eos # (Auto) 0.22 (0.04-0.54) x10^3/uL Immature Gran # (Auto) 0.04 H (0.001-0.031) x10^3u/L Absolute Lymphs (auto) 1.28 L (1.32-3.57) x10^3/uL Absolute Monos (auto) 0.69 (0.30-0.82) x10^3/uL Absolute Nucleated RBC 0.00 (0.00-0.012) x10^3u/L Lymphocytes % 14.1 L (21.8-53.1) % Monocytes % 7.6 (5.3-12.2) % Eosinophils % 2.4 (0.8-7.0) % Basophils % 0.6 (0.2-1.2) % Absolute Granulocytes 6.79 H (1.78-5.38) x10^3/uL Basophils # 0.05 (0.01-0.08) x10^3/uL D-Dimer (0.0-0.50) mg/L Sodium 136 (135-145) mmol/L Potassium 3.9 (3.5-5.1) mmol/L Chloride 102 (98-107) mmol/L Carbon Dioxide 21 L (22-30) mmol/L Anion Gap 17.6 H (5-15) MEQ/L BUN 21 H (9-20) mg/dL Creatinine 1.06 (0.66-1.25) mg/dL Estimated GFR 83.4 ML/MIN Glucose 148 H (74-106) mg/dL Lactic Acid (0.4-2.0) Calcium 9.7 (8.4-10.2) mg/dL Magnesium 1.8 (1.6-2.3) mg/dL Total Bilirubin 0.70 (0.2-1.3) mg/dL AST 64 H (17-59) U/L ALT 147 H (0-50) U/L Alkaline Phosphatase 73 (38-126) U/L Troponin I < 0.012 (0.000-0.033) ng/mL NT-Pro-B Natriuret Pep (<300) pg/mL Serum Total Protein 7.4 (6.3-8.2) g/dL Albumin 4.6 (3.5-5.0) g/dL Urine Color (Yellow) Urine Appearance (Clear) Urine pH (4.6-8.0) Ur Specific [place] (1.005-1.030) Urine Protein (Negative) Urine Glucose (UA) (Negative) mg/dL Urine Ketones (Negative) Urine Blood (Negative) Urine Nitrite (Negative) Urine Bilirubin (Negative) Urine Urobilinogen (0.2) mg/dL Ur Leukocyte Esterase (Negative) U Hyaline Cast (Auto) (0-2) /LPF Urine Microscopic RBC (0-5) /HPF Urine Microscopic WBC (0-5) /HPF Ur Epithelial Cells (None Seen) /HPF Urine Bacteria (None Seen) /HPF Urine Culture Reflexed (NO) Monoscreen (NEGATIVE) Influenza Type A Ag (NEGATIVE) Influenza Type B Ag (NEGATIVE) RSV (PCR) (NEGATIVE) SARS-CoV-2 (PCR) (NEGATIVE) 01/06/24 01/06/24 01/06/24 Range/Units 19:40 19:40 19:55 WBC (4.23-9.07) x10^3/uL RBC (4.63-6.08) x10^6/uL Hgb (13.7-17.5) g/dL Hct (40.1-51.0) % MCV (79.0-92.2) fL MCH (25.7-32.2) pg MCHC (32.3-36.5) g/dL RDW (11.6-14.4) % Plt Count (163-337) x10^3/uL MPV (9.4-12.4) fL Gran % (34.0-67.9) % Immature Gran % (Auto) (0.001-0.429) % Nucleat RBC Rel Count (0.00-0.2) % Eos # (Auto) (0.04-0.54) x10^3/uL Immature Gran # (Auto) (0.001-0.031) x10^3u/L Absolute Lymphs (auto) (1.32-3.57) x10^3/uL Absolute Monos (auto) (0.30-0.82) x10^3/uL Absolute Nucleated RBC (0.00-0.012) x10^3u/L Lymphocytes % (21.8-53.1) % Monocytes % (5.3-12.2) % Eosinophils % (0.8-7.0) % Basophils % (0.2-1.2) % Absolute Granulocytes (1.78-5.38) x10^3/uL Basophils # (0.01-0.08) x10^3/uL D-Dimer 0.41 (0.0-0.50) mg/L Sodium (135-145) mmol/L Potassium (3.5-5.1) mmol/L Chloride (98-107) mmol/L Carbon Dioxide (22-30) mmol/L Anion Gap (5-15) MEQ/L BUN (9-20) mg/dL Creatinine (0.66-1.25) mg/dL Estimated GFR ML/MIN Glucose (74-106) mg/dL Lactic Acid 1.1 (0.4-2.0) Calcium (8.4-10.2) mg/dL Magnesium (1.6-2.3) mg/dL Total Bilirubin (0.2-1.3) mg/dL AST (17-59) U/L ALT (0-50) U/L Alkaline Phosphatase (38-126) U/L Troponin I (0.000-0.033) ng/mL NT-Pro-B Natriuret Pep 60.5 (<300) pg/mL Serum Total Protein (6.3-8.2) g/dL Albumin (3.5-5.0) g/dL Urine Color (Yellow) Urine Appearance (Clear) Urine pH (4.6-8.0) Ur Specific [place] (1.005-1.030) Urine Protein (Negative) Urine Glucose (UA) (Negative) mg/dL Urine Ketones (Negative) Urine Blood (Negative) Urine Nitrite (Negative) Urine Bilirubin (Negative) Urine Urobilinogen (0.2) mg/dL Ur Leukocyte Esterase (Negative) U Hyaline Cast (Auto) (0-2) /LPF Urine Microscopic RBC (0-5) /HPF Urine Microscopic WBC (0-5) /HPF Ur Epithelial Cells (None Seen) /HPF Urine Bacteria (None Seen) /HPF Urine Culture Reflexed (NO) Monoscreen (NEGATIVE) Influenza Type A Ag (NEGATIVE) Influenza Type B Ag (NEGATIVE) RSV (PCR) (NEGATIVE) SARS-CoV-2 (PCR) (NEGATIVE) 01/06/24 01/06/24 01/06/24 Range/Units 20:10 20:12 23:33 WBC (4.23-9.07) x10^3/uL RBC (4.63-6.08) x10^6/uL Hgb (13.7-17.5) g/dL Hct (40.1-51.0) % MCV (79.0-92.2) fL MCH (25.7-32.2) pg MCHC (32.3-36.5) g/dL RDW (11.6-14.4) % Plt Count (163-337) x10^3/uL MPV (9.4-12.4) fL Gran % (34.0-67.9) % Immature Gran % (Auto) (0.001-0.429) % Nucleat RBC Rel Count (0.00-0.2) % Eos # (Auto) (0.04-0.54) x10^3/uL Immature Gran # (Auto) (0.001-0.031) x10^3u/L Absolute Lymphs (auto) (1.32-3.57) x10^3/uL Absolute Monos (auto) (0.30-0.82) x10^3/uL Absolute Nucleated RBC (0.00-0.012) x10^3u/L Lymphocytes % (21.8-53.1) % Monocytes % (5.3-12.2) % Eosinophils % (0.8-7.0) % Basophils % (0.2-1.2) % Absolute Granulocytes (1.78-5.38) x10^3/uL Basophils # (0.01-0.08) x10^3/uL D-Dimer (0.0-0.50) mg/L Sodium (135-145) mmol/L Potassium (3.5-5.1) mmol/L Chloride (98-107) mmol/L Carbon Dioxide (22-30) mmol/L Anion Gap (5-15) MEQ/L BUN (9-20) mg/dL Creatinine (0.66-1.25) mg/dL Estimated GFR ML/MIN Glucose (74-106) mg/dL Lactic Acid (0.4-2.0) Calcium (8.4-10.2) mg/dL Magnesium (1.6-2.3) mg/dL Total Bilirubin (0.2-1.3) mg/dL AST (17-59) U/L ALT (0-50) U/L Alkaline Phosphatase (38-126) U/L Troponin I (0.000-0.033) ng/mL NT-Pro-B Natriuret Pep (<300) pg/mL Serum Total Protein (6.3-8.2) g/dL Albumin (3.5-5.0) g/dL Urine Color Yellow (Yellow) Urine Appearance Clear (Clear) Urine pH 6.5 (4.6-8.0) Ur Specific [place] >=1.030 A (1.005-1.030) Urine Protein Negative (Negative) Urine Glucose (UA) Negative (Negative) mg/dL Urine Ketones 15 A (Negative) Urine Blood Negative (Negative) Urine Nitrite Negative (Negative) Urine Bilirubin Negative (Negative) Urine Urobilinogen 0.2 (0.2) mg/dL Ur Leukocyte Esterase Negative (Negative) U Hyaline Cast (Auto) NONE SEEN (0-2) /LPF Urine Microscopic RBC 0-2 (0-5) /HPF Urine Microscopic WBC 0-2 (0-5) /HPF Ur Epithelial Cells None Seen (None Seen) /HPF Urine Bacteria None Seen (None Seen) /HPF Urine Culture Reflexed NO (NO) Monoscreen NEGATIVE (NEGATIVE) Influenza Type A Ag NEGATIVE (NEGATIVE) Influenza Type B Ag NEGATIVE (NEGATIVE) RSV (PCR) NEGATIVE (NEGATIVE) SARS-CoV-2 (PCR) NEGATIVE (NEGATIVE) 01/07/24 Range/Units 00:05 WBC (4.23-9.07) x10^3/uL RBC (4.63-6.08) x10^6/uL Hgb (13.7-17.5) g/dL Hct (40.1-51.0) % MCV (79.0-92.2) fL MCH (25.7-32.2) pg MCHC (32.3-36.5) g/dL RDW (11.6-14.4) % Plt Count (163-337) x10^3/uL MPV (9.4-12.4) fL Gran % (34.0-67.9) % Immature Gran % (Auto) (0.001-0.429) % Nucleat RBC Rel Count (0.00-0.2) % Eos # (Auto) (0.04-0.54) x10^3/uL Immature Gran # (Auto) (0.001-0.031) x10^3u/L Absolute Lymphs (auto) (1.32-3.57) x10^3/uL Absolute Monos (auto) (0.30-0.82) x10^3/uL Absolute Nucleated RBC (0.00-0.012) x10^3u/L Lymphocytes % (21.8-53.1) % Monocytes % (5.3-12.2) % Eosinophils % (0.8-7.0) % Basophils % (0.2-1.2) % Absolute Granulocytes (1.78-5.38) x10^3/uL Basophils # (0.01-0.08) x10^3/uL D-Dimer (0.0-0.50) mg/L Sodium (135-145) mmol/L Potassium (3.5-5.1) mmol/L Chloride (98-107) mmol/L Carbon Dioxide (22-30) mmol/L Anion Gap (5-15) MEQ/L BUN (9-20) mg/dL Creatinine (0.66-1.25) mg/dL Estimated GFR ML/MIN Glucose (74-106) mg/dL Lactic Acid (0.4-2.0) Calcium (8.4-10.2) mg/dL Magnesium (1.6-2.3) mg/dL Total Bilirubin (0.2-1.3) mg/dL AST (17-59) U/L ALT (0-50) U/L Alkaline Phosphatase (38-126) U/L Troponin I < 0.012 (0.000-0.033) ng/mL NT-Pro-B Natriuret Pep (<300) pg/mL Serum Total Protein (6.3-8.2) g/dL Albumin (3.5-5.0) g/dL Urine Color (Yellow) Urine Appearance (Clear) Urine pH (4.6-8.0) Ur Specific [place] (1.005-1.030) Urine Protein (Negative) Urine Glucose (UA) (Negative) mg/dL Urine Ketones (Negative) Urine Blood (Negative) Urine Nitrite (Negative) Urine Bilirubin (Negative) Urine Urobilinogen (0.2) mg/dL Ur Leukocyte Esterase (Negative) U Hyaline Cast (Auto) (0-2) /LPF Urine Microscopic RBC (0-5) /HPF Urine Microscopic WBC (0-5) /HPF Ur Epithelial Cells (None Seen) /HPF Urine Bacteria (None Seen) /HPF Urine Culture Reflexed (NO) Monoscreen (NEGATIVE) Influenza Type A Ag (NEGATIVE) Influenza Type B Ag (NEGATIVE) RSV (PCR) (NEGATIVE) SARS-CoV-2 (PCR) (NEGATIVE) - Radiology Impressions Radiology Exams & Impressions: Radiology Procedures Category Date Time Status CHEST 1 VIEW (PORTABLE) Stat Exams 01/06/24 21:18 Taken HEAD WITHOUT CONTRAST [CT] Stat Exams 01/06/24 21:20 Taken MRI L-SPINE W & W/O CONTRAST [MRI] Routine Exams 01/07/24 01:36 Ordered MRI T-SPINE W & W/O CONTRAST [MRI] Routine Exams 01/07/24 01:36 Ordered Assessment/Plan (1) Back pain Current Visit: Yes Status: Acute Assessment & Plan: As below, MRI ordered. [place]. Code(s): M54.9 - DORSALGIA, UNSPECIFIED (2) Herpes zoster infection Current Visit: Yes Status: Acute Assessment & Plan: In the context of the patient's reported bilateral leg numbness, will order MRI of the lumbar and thoracic spine to rule out occult process. No saddle anesthesia noted. Differential diagnosis includes a postherpetic neuralgia, although the constellation of symptoms and distribution of affected areas is not consistent. Initiated amitryptiline and also will offer Dilaudid for breakthrough pain. Muscle relaxants for spasms and will resume the prescribed Medrol dose pack. Continue Valtrex. On isolation. Code(s): B02.9 - ZOSTER WITHOUT COMPLICATIONS (3) Restless leg syndrome Current Visit: Yes Status: Acute Assessment & Plan: Continue Requip (4) Fever Current Visit: Yes Status: Acute Assessment & Plan: Likely related to viral syndrome. Will monitor. Code(s): R50.9 - FEVER, UNSPECIFIED Telemedicine Encounter - Telemedicine Encounter Telemedicine Encounter: "The entirety of this encounter was performed via Telemedicine" This visit was performed using real-time audio and video connection between my location and thepatients locationwith the assistance of a surrogateat the patients location. Written or verbal consent was obtained from the patient/guardian to perform this [facility]. Any patient questions regarding the telemedicine interaction were answered.
[2024-01-07] MEDS ORDERED: Cyclobenzaprine 10 MG PO PRN (02:06)
[2024-01-07] MEDS: TYLENOL 325 MG PO PRN (02:15)
[2024-01-07] MEDS: Requip 0.5 MG PO ONE (02:15)
[2024-01-07] MEDS: Sodium Chloride 0.9% 1000 ML 1,000 ML IV SCH (02:15)
[2024-01-07] MEDS: Hydromorphone 1 mg/ml Injection IV PRN (02:15)
[2024-01-07 04:31] LABS: Absolute Neutrophil Ct (ANC) 5.76 x10^3/uL (1.78-5.38); BASOPHIL % 0.6 % (0.2-1.2); Basophil (Absolute #) 0.05 x10^3/uL (0.01-0.08); Eosinophil % 1.7 % (0.8-7.0); Eosinophil (Absolute #) 0.14 x10^3/uL (0.04-0.54); Hematocrit 44.1 % (40.1-51.0); Hemoglobin 15.3 g/dL (13.7-17.5); IMMATURE GRAN # 0.03 x10^3u/L (0.001-0.031); IMMATURE GRAN % 0.4 % (0.001-0.429); Lymphocyte (Absolute #) 1.48 x10^3/uL (1.32-3.57); Lymphocytes % 18.2 % (21.8-53.1); Mean Cell Volume 93.2 fL (79.0-92.2); Mean Corpuscular Hemoglobin 32.3 pg (25.7-32.2); Mean Corpuscular Hgb Concent. 34.7 g/dL (32.3-36.5); Mean Platelet Volume 10.3 fL (9.4-12.4); Monocyte (Absolute #) 0.66 x10^3/uL (0.30-0.82); Monocytes % 8.1 % (5.3-12.2); Platelet Count 182 x10^3/uL (163-337); Red Blood Count 4.73 x10^6/uL (4.63-6.08); Red Cell Distribution Width 11.9 % (11.6-14.4); White Blood Count 8.1 x10^3/uL (4.23-9.07)
[2024-01-07 04:56] LABS: ALBUMIN 4.3 g/dL (3.5-5.0); ANION GAP 15.9 MEQ/L (5-15); BILIRUBIN,TOTAL 0.6 mg/dL (0.2-1.3); Creatinine 1 0.99 mg/dL (0.66-1.25); EST GLOMERULAR FILTRATION RATE 90.5 ML/MIN; Potassium 4.3 mmol/L (3.5-5.1)
[2024-01-07] MEDS: ACYCLOVIR PO SCH (07:22)
[2024-01-07] MEDS: MEDROL 4 MG PO SCH (07:25)
--- NOTE | 2024-01-07 08:41 | XRAY ---
Indication: Short of breath. Comparison: May 17, 2012 Portable chest now demonstrates minimal right base discoid atelectasis/scarring. Remaining heart, lungs, and bony thorax normal.
--- NOTE | 2024-01-07 08:41 | XRAY ---
Indication: Severe headache. Multiple contiguous axial images obtained through the head without contrast. Comparison: None Normal appearing brain parenchyma, ventricles, and bony calvarium. Visualized paranasal sinuses demonstrates 1.8 cm inferior right maxillary sinus polyp/retention cyst. Mastoid air cells are clear. Impression: Normal CT head without contrast exam. Incidental right maxillary sinus polyp/retention cyst.
[2024-01-07] MEDS ORDERED: PHARMACY DOSING REQUEST MC ONE (09:00)
[2024-01-07] MEDS ORDERED: VENTOLIN COMMON CANISTER IH PRN (09:59)
[2024-01-07] MEDS ORDERED: NON-FORMULARY ITEM (Valacyclovir Hcl [Valacyclovir] 1,000 MG Tablet) PO SCH (10:00)
[2024-01-07] MEDS: Lidoderm Patch 5% TOP SCH (11:33)
--- NOTE | 2024-01-07 14:24 | XRAY ---
Indication: Back pain. Bilateral leg numbness. Sagittal and axial MRI thoracic spine performed using pre-and post T1 and T2-weighted sequences. 20 cc Dotarem contrast used. Comparison: None Sagittal images demonstrates normal thoracic alignment. Minimal multilevel degenerative disc desiccation signal with little to no disc space narrowing. No acute fracture, suspicious bony lesions, or abnormal bone marrow signal. Spinal cord is normal in course and caliber without signal abnormality. Conus medullaris terminates at T12. Axial images through disc levels demonstrates minimal right paracentral disc bulge at T7-T8 level. Remaining levels negative for disc herniation or spinal canal stenosis. Following gadolinium, there is no abnormal intra/extra thecal enhancement. No abnormal bony enhancement either. Impression: Minimal T7-T8 right paracentral disc bulge. Remaining MRI thoracic spine with contrast exam is negative.
[2024-01-07] MEDS: PERCOCET TABLET 5/325MG PO PRN (14:32)
--- NOTE | 2024-01-07 14:32 | XRAY ---
Indication: Back pain. Bilateral leg numbness. Sagittal and axial MRI lumbar spine performed using pre-and post T1 and T2-weighted sequences. 20 cc Dotarem contrast used. Comparison: None Based on nomenclature same day MRI thoracic spine exam, there are 6 lumbar segments. Sagittal images demonstrates normal lumbar alignment. Minimal L5-S1 degenerative disc desiccation signal without disc space narrowing. Incidental 3 mm L6 vertebral hemangioma. No acute fracture, suspicious bony lesions, or abnormal bone marrow signal. Conus medullaris terminates at T12. Sagittal images through T12-L4 disc levels are unremarkable. Axial images through L4-L5 disc level negative for disc herniation, spinal canal, or foraminal stenosis. Facets are symmetric. At L5-L6 level, there is minimal broad-based disc bulge minimally effacing the thecal sac and producing minimal bilateral foraminal narrowing. No focal disc herniation or canal stenosis. Moderate bilateral degenerative facet hypertrophy. At L6-S1 level, there is tiny central annular tear with tiny central disc bulge. No disc herniation, spinal canal, or foraminal stenosis. Mild bilateral degenerative facet hypertrophy. Following gadolinium, there is no abnormal intra/extra thecal enhancement. No abnormal bony enhancement either. Impression: 1. 6 lumbar segments. 2. Minimal L5-L6 degenerative disease. 3. Tiny central L6-S1 annular tear with tiny disc bulge. 4. Incidental tiny L6 vertebral hemangioma. 5. Remaining MRI lumbar spine with contrast exam is negative.
[2024-01-07] MEDS: MOTRIN 600 MG PO PRN (18:41)
[2024-01-07] MEDS: Requip 0.5 MG PO SCH (23:06)
[2024-01-07] MEDS: AMITRIPTYLINE 25 MG TABLET PO SCH (23:06)
[2024-01-08 05:43] LABS: Hematocrit 44.1 % (40.1-51.0); Hemoglobin 15.2 g/dL (13.7-17.5); Mean Cell Volume 93.6 fL (79.0-92.2); Mean Corpuscular Hemoglobin 32.3 pg (25.7-32.2); Mean Corpuscular Hgb Concent. 34.5 g/dL (32.3-36.5); Mean Platelet Volume 10.7 fL (9.4-12.4); Platelet Count 172 x10^3/uL (163-337); Red Blood Count 4.71 x10^6/uL (4.63-6.08); White Blood Count 7.4 x10^3/uL (4.23-9.07)
[2024-01-08 06:34] LABS: ALBUMIN 4.2 g/dL (3.5-5.0); ANION GAP 15.5 MEQ/L (5-15); BILIRUBIN,TOTAL 0.6 mg/dL (0.2-1.3); Calcium 8.8 mg/dL (8.4-10.2); Creatinine 1 0.88 mg/dL (0.66-1.25); EST GLOMERULAR FILTRATION RATE 102.2 ML/MIN; Potassium 4.3 mmol/L (3.5-5.1); Total Protein 7.2 g/dL (6.3-8.2)
[2024-01-08 07:50] VITALS: BP 184/75; TEMP 98.5
[2024-01-08 08:08] VITALS: PULSE 82; RESP 18; O2SAT 96
[2024-01-08] MEDS: TORAdol 30 mg Injection IV ONE (08:53)
[2024-01-08] MEDS: NORVASC 5 MG PO SCH (10:35)
--- NOTE | 2024-01-08 10:59 | PCM.DS ---
Discharge Summary Date of Admission: 01/07/24 01:14 Date of Discharge: 01/08/24 Admitting Physician: KYLEE AREVALO MD Primary Care Provider: MAGGIE CAMARILLO Allergies Allergies carisoprodol [From Soma] Allergy (Severe, Verified 01/06/24 20:04) Hospital Summary - Hospital Course Hospital Course: is a 53 year old male who was recently diagnosed with chest wall shingles (at outside ED, with initiation of Valtrex, medrol). He presented on 01/06 with [id number] back pain, bilateral leg numbness, fever, and headache. On the day of presentation, the patient reported headache and mild light sensitivity but denied neck pain, neck stiffness, saddle anesthesia, bowel/bladder incontinence, or urinary retention. He has had mild constipation but is passing flatus. His last BM was 2 days ago and was normal. The patient's chest wall eruption is still painful. He also reported dyspnea but did not report precordial visceral chest pain. He does have a history of restless leg syndrome and is on Requip for that condition. He has noticed that he has had bilateral lower extremity intermittent numbness from his lower back to his feet. He denies chest pain. He denies shortness of breath. He reported cramping in his lower legs. In the ED, the workup was unremarkable but the patient was too uncomfortable for discharge. NRI thoracic and lumbar spine negative for acute concern. Pt stated he had a sever H/A this morning and ketorlac IV gave and this resolved H/A. He denies neck stiffness. He was able to walk to the bathroom w/o concerns. He is no longer having leg numbness. and shingles pain improved with pain meds. He feels he is ready to d/c today. Pt educated on sxs of concern and to come back to ER for severe H/A w/o relief from medications. He denies CP, SOB, abd. pain, N/V/D. - Vitals & Intake/Output Vital Signs: Vital Signs Temperature 98.5 F 01/08/24 07:49 Pulse Rate 82 01/08/24 08:06 Respiratory Rate 18 01/08/24 08:06 Blood Pressure 184/75 01/08/24 07:49 O2 Sat by Pulse Oximetry 96 01/08/24 08:06 Intake & Output: Intake & Output 01/05/24 01/06/24 01/07/24 01/08/24 11:59 11:59 11:59 11:59 Intake Total 480 4459 Output Total 500 750 Balance -20 3709 Weight 109.8 kg - Lab Result Diagrams: 01/08/24 05:27 01/08/24 05:27 Lab Results-Last 24 Hrs: Lab Results-Last 24 Hours 01/08/24 01/08/24 Range/Units 05:27 05:27 WBC 7.4 (4.23-9.07) x10^3/uL RBC 4.71 (4.63-6.08) x10^6/uL Hgb 15.2 (13.7-17.5) g/dL Hct 44.1 (40.1-51.0) % MCV 93.6 H (79.0-92.2) fL MCH 32.3 H (25.7-32.2) pg MCHC 34.5 (32.3-36.5) g/dL RDW 12.0 (11.6-14.4) % Plt Count 172 (163-337) x10^3/uL MPV 10.7 (9.4-12.4) fL Sodium 140 (135-145) mmol/L Potassium 4.3 (3.5-5.1) mmol/L Chloride 105 (98-107) mmol/L Carbon Dioxide 24 (22-30) mmol/L Anion Gap 15.5 H (5-15) MEQ/L BUN 16 (9-20) mg/dL Creatinine 0.88 (0.66-1.25) mg/dL Estimated GFR 102.2 ML/MIN Glucose 135 H (74-106) mg/dL Calcium 8.8 (8.4-10.2) mg/dL Total Bilirubin 0.60 (0.2-1.3) mg/dL AST 80 H (17-59) U/L ALT 161 H (0-50) U/L Alkaline Phosphatase 75 (38-126) U/L Serum Total Protein 7.2 (6.3-8.2) g/dL Albumin 4.2 (3.5-5.0) g/dL Micro Results-Entire Visit: Microbiology 01/06/24 20:10 Blood Culture - Preliminary Blood 01/06/24 19:40 Blood Culture - Preliminary Blood - Radiology Exams Ordered Rad Exams-Entire Visit: Radiology Procedures Category Date Time Status CHEST 1 VIEW (PORTABLE) Stat Exams 01/06/24 21:18 Completed HEAD WITHOUT CONTRAST [CT] Stat Exams 01/06/24 21:20 Completed MRI L-SPINE W & W/O CONTRAST [MRI] Routine Exams 01/07/24 01:36 Completed MRI T-SPINE W & W/O CONTRAST [MRI] Routine Exams 01/07/24 01:36 Completed - Procedures and Test Procedures and Tests throughout Hospitalization: Therapy Orders & Screens 01/07/24 07:44 Oxygen NASAL CANNULA 2 lpm Comment: Diagnosis: Herpes zoster infection 01/07/24 09:52 Respiratory Therapy Assessment DAILY Comment: Diagnosis: Herpes zoster infection Discharge Exam General Appearance: no apparent distress, alert, obese Neurologic Exam: alert, oriented x 3, cooperative, normal mood/affect, nml cerebellar function, sensation nml, No motor deficits Eye Exam: PERRL, EOMI, eyes nml inspection Ears, Nose, Throat Exam: normal ENT inspection, pharynx normal, moist mucous membranes Neck Exam: normal inspection, non-tender, supple, full range of motion Respiratory Exam: normal breath sounds, lungs clear, No respiratory distress Cardiovascular Exam: regular rate/rhythm, normal heart sounds Gastrointestinal/Abdomen Exam: soft, No tenderness, No mass Male Genitalia Exam: deferred Rectal Exam: deferred Back Exam: normal inspection, normal range of motion, No CVA tenderness, No vertebral tenderness Extremity Exam: normal inspection, normal range of motion Skin Exam: normal color, warm, dry, other (shingles rash from right flank around to right back following dermatone.) Wound Assessment: Skin/Wound Assessment Wound/Incision Assessment Start: 01/07/24 02:00 Text: Status: Active Freq: Q6H Protocol: Document 01/08/24 08:00 (Rec: 01/08/24 09:07 [id number]) Wound/Incision Assessment Right Chest Wound Assessment Shift Assessment Wound Type Shingles Wound Stage Non Pressure Wound Dressing Status Dry & Intact Drainage Amount None Wound Photo Photo Taken No Final Diagnosis/Problem List - Final Discharge Diagnosis/Problem (1) Herpes zoster infection Current Visit: Yes Status: Acute Assessment & Plan: - Continue Valtrex. - isolation. - SCD's - lidocaine patch - IBP, TYlenol, Percocet PRN pain Code(s): B02.9 - ZOSTER WITHOUT COMPLICATIONS (2) Back pain Current Visit: Yes Status: Acute Assessment & Plan: - resolved - MRI of thoracic and lumbar MRI reviewed and negative for acute concern- can f/u OP for any concerns - pain likely 2:2 shingles. Code(s): M54.9 - DORSALGIA, UNSPECIFIED (3) Fever Current Visit: Yes Status: Resolved Assessment & Plan: - resolved since admission - Tylenol and IBP PRN Code(s): R50.9 - FEVER, UNSPECIFIED (4) Restless leg syndrome Current Visit: Yes Status: Chronic Assessment & Plan: -Continue Requip (5) Headache Current Visit: Yes Status: Acute Assessment & Plan: - resolved with IV ketorlac today - pt feels he went w/o pain medication too long last night and pain got out of control causing a h/a. Code(s): R51.9 - HEADACHE, UNSPECIFIED (6) BMI 33.0-33.9,adult Current Visit: Yes Status: Chronic Assessment & Plan: - advised diet and exercise control Code(s): Z68.33 - BODY MASS INDEX [BMI] 33.0-33.9, ADULT - Discharge Discharge Date: 01/08/24 Disposition: Home, Self-Care Condition: Stable Prescriptions: New Amlodipine Besylate 5 mg [Norvasc 5 mg] 5 mg PO QAM 10 Days #10 tablet Amitriptyline HCl 25 mg [Amitriptyline 25 mg Tablet] 25 mg PO HS 10 Days #10 tablet Oxycodone/APAP 5 mg/325 mg [Percocet Tablet 5/325Mg] 1 tab PO QIDP PRN 3 Days #12 tablet MDD 4 PRN Reason: Pain Continue Valacyclovir HCl [Valacyclovir] 1,000 mg PO TID Ropinirole HCl 0.5 mg [Requip 0.5 MG] 0.5 mg PO HS Cyclobenzaprine HCl 5 mg PO TIDPRN PRN PRN Reason: Muscle Spasms Methylprednisolone Packet [Medrol Dosepack] 4 mg PO UD Albuterol 8 gm Mdi Hfa [Ventolin Hfa MDI] 2 puffs IH Q6HPRN PRN PRN Reason: Shortness Of Breath Additional Instructions: You can buy over the counter lidocaine patches, Ibuprofen, and tylenol to use in combination with narcotic pain medication for shingles pain. Alternate meds for pain relief. You OTC meds for constipation if needed and narcotic pain med may cause this. Follow up with: MAGGIE CAMARILLO MD [Primary Care Provider] - 01/14/24 11:00 am
== END 2024-01-08 12:25 | disposition home or self-care (01) ==
LOC: ED 19:20 → UNDOADMOB 01-07 01:14 → MED SURG 01-07 01:14
PROVIDERS: ADMIT Internal Medicine; ATTEND Internal Medicine
DX: B02.9 Zoster without complications (principal); M54.9 Dorsalgia, unspecified; R50.9 Fever, unspecified; G25.81 Restless legs syndrome; R51.9 Headache, unspecified; Z68.33 Body mass index [BMI] 33.0-33.9, adult; Z79.899 Other long term (current) drug therapy
CPT/HCPCS: 0241U; 36000; 36415; 70450; 71045; 72157; 72158; 80053; 81001; 83605; 83735; 83880; 84484; 85025; 85027; 85379; 86308; 87040; 93005; 93041; 94760; 96360; 96361; 96365; 96374; 96375; 96376; 99285; G0378; J0696; J1170; J1885; J2270; J2405; A9270-GY